=== PATIENT | male | born 1995 | race Hispanic/Latino ===

== ENCOUNTER 2017-11-09 03:37 | Emergency (ER) | payer OTHER ==
[2017-11-09 03:52] VITALS: BP 140/86; PULSE 90; RESP 17; TEMP 98.3; O2SAT 99
[2017-11-09] MEDS ORDERED: Lidocaine 1% w Epi 1:100,000 Inj INJ STA (03:55)
--- NOTE | 2017-11-09 03:58 | ED PDOC ---
HPI: Wound Care - HPI Time Seen by Provider: 11/09/17 03:55 Chief Complaint (Nursing): Abnormal Skin Integrity Chief Complaint (Provider): facial laceration History Per: Patient Additional Complaint(s): 22-year-old male presents with laceration to nasal bridge status post trip and fall. Patient was walking home this evening when he fell forward hitting face against the ground. He did not sustain loss of consciousness. Patient states tetanus is up-to-date. He states fall occurred about 1 hour prior to arrival to ED. PMD: none Past Medical History Reviewed: Historical Data, Nursing Documentation, Vital Signs Vital Signs: Last Vital Signs Temp 98.3 F 11/09/17 03:44 Pulse 90 11/09/17 03:44 Resp 17 11/09/17 03:44 BP 140/86 11/09/17 03:44 Pulse Ox 99 11/09/17 03:44 - Medical History PMH: No Chronic Diseases - Surgical History Surgical History: No Surg Hx - Family History Family History: States: No Known Family Hx - Living Arrangements Living Arrangements: With Friends/Others - Social History Current smoker - smoking cessation education provided: No Alcohol: Social Drugs: Denies - Immunization History Hx Tetanus Toxoid Vaccination: Yes - Allergies Allergies/Adverse Reactions: Allergies Allergy/AdvReac Type Severity Reaction Status Date / Time No Known Allergies Allergy Verified 11/09/17 03:52 Review of Systems ROS Statement: Except As Marked, All Systems Reviewed And Found Negative ENT: Positive for: Other (nasal bridge laceration) Neurological: Positive for: Other (head injury with no LOC) Physical Exam - Reviewed Nursing Documentation Reviewed: Yes Vital Signs Reviewed: Yes - Physical Exam Appears: Positive for: Well, Non-toxic, No Acute Distress Skin: Positive for: Normal Color. Negative for: Rash Eye Exam: Positive for: Normal appearance ENT: Positive for: Other (2 cm horseshoe shaped laceration noted to proximal nasal bridge, macerated wound borders noted, minimal active bleeding, bilateral nares are patent, no septal hematoma or active epistaxis, abrasions noted to mid forehead and chin) Neurologic/Psych: Positive for: Alert, Oriented - ECG O2 Sat by Pulse Oximetry: 99 Pulse Ox Interpretation: Normal Procedure: Wound Repair - Time Performed Time Performed: 04:59 - Time Out Time Out: Side verified, Site verified, Sterile procedures obs. - Procedure Procedure: Wound Repair: proximal nasal bridge laceration - Consent Obtained Consent obtained: Verbal - Performed by Performed by: Mid-level Provider - Indications Indication(s):: Laceration - Location Location:: Nose Shape:: Other (horshoe shaped laceration) Dimensions Length cm: 2 Depth:: Epidermis - Anesthetic Technique Anesthetic Technique: Local Local/Regional Anesthetic:: Lidocaine 1% - Complexity Complexity:: Simple (one layer) - Wound repair method Sutures:: Size (5-0), Type (chromic gut), Technique (Uninterrupted running suture) - Muscle repiar layer closed with Muscle repair layer closed with:: Wound well approximated, Abx ointment applied , Dressing applied, Tetanus up to date - Complications Complications: none - Patient tolerated procedure Patient Tolerated Procedure:: Well Medical Decision Making Medical Decision Makin22 year old with facial laceration Plan: CT head and facial bones Lac repair - patient agrees to laceration repair by feature writer, he declined plastic surgery consult. Patient is aware of scar potential. After laceration repair patient states he wishes to leave the emergency room. Patient is refusing CAT scan secondary to lack of insurance. Medication Care Manager explain medical necessity of CAT scan secondary to traumatic facial and head injury to rule out acute facial fracture and possible bleed. Patient does not want studies to be completed and wishes to sign out against medical advice. Risks and dangers of signing out AGAINST MEDICAL ADVICE were discussed with patient which include but are not limited to worsening of current condition and possible . Patient verbalized understanding of these risks and dangers and still wishes to leave AGAINST MEDICAL ADVICE. Patient is competent and capable of making this decision. Patient given wound care instructions. Disposition - Clinical Impression Clinical Impression: Facial laceration, Left against medical advice - Patient ED Disposition Is Patient to be Admitted: No Counseled Patient/Family Regarding: Need For Followup - Disposition [facility]errals[facility] Disposition: Against Medical Advice Disposition Time: 04:57 Condition: UNKNOWN Additional Instructions: You have decided to sign out AGAINST MEDICAL ADVICE. Follow-up with primary doctor as soon as possible. Keep wound clean and dry. Apply Neosporin once per day only. Tylenol for pain as needed. Sutures will fall out within 2-3 weeks, they do not need to be removed. Instructions: Laceration Repair With Stitches (DC), Closed Head Injury, Leaving Against Medical Advice Forms: [email or web address] (Mal[place]ian)
[2017-11-09] MEDS ORDERED: Lidocaine 2% MPF (5 ml) Inj ONE (04:00)
[2017-11-09] MEDS ORDERED: Povidone Iodine Topical 10% Sol ONE (04:00)
== END 2017-11-09 05:27 | disposition home or self-care (01) ==
LOC: H.ER 03:37
DX: S01.21XA Laceration without foreign body of nose, initial encounter (principal); W19.XXXA Unspecified fall, initial encounter; Y92.89 Other specified places as the place of occurrence of the external cause